=== PATIENT | male | born 1980 | race Caucasian/White ===

== ENCOUNTER 2017-10-16 18:02 | Emergency (ER) | payer OTHER ==
[2017-10-16 18:06] VITALS: BP 133/92
[2017-10-16] MEDS ORDERED: ONDANSETRON 4 MG ODT TABDP SL ONE (18:15)
--- NOTE | 2017-10-16 18:22 | ER Report ---
History and Physical Time Seen By MD: 18:13 Hx. of Stated Complaint: PATIENT REPORTS THAT HE IS FEELING DEHYDRATED. HE REPORTS THAT HE DRANK TOO MUCH LAST NIGHT AND WENT CLIMBING TODAY HPI/ROS CHIEF COMPLAINT: Panic attack HISTORY OF PRESENT ILLNESS: This is a 36-year-old male who presents to the emergency department for vomiting and a panic attack. Patient states he had more alcohol last night than he typically does, without rockclimbing today had several episodes of vomiting. Became anxious, began to have some carpal pedal spasms and decided come to the ER for further evaluation. Patient arrives anxious however once he's on the gurney and relaxing the carpal pedal spasms beginning to subside. Patient has no other complaints no fevers or chills. No headaches. No leg pain. No chest pain. REVIEW OF SYSTEMS: Respiratory: No cough, no dyspnea. Cardiovascular: No chest pain, no palpitations. Gastrointestinal: As above. Musculoskeletal: As above. Allergies: Coded Allergies: Amoxicillin (Verified Allergy, Mild, 06/14/08) Bacitracin (Verified Allergy, Mild, 06/14/08) Gramicidin D (Verified Allergy, Mild, 06/14/08) Neomycin (Verified Allergy, Mild, 06/14/08) Polymyxin B (Verified Allergy, Mild, 06/14/08) Sulfa (Sulfonamides) (Verified Allergy, Mild, 06/14/08) Home Meds Active Scripts Ondansetron (ZOFRAN ODT) 4 Mg Tab.rapdis, 4 MG PO Q6H Y for NAUSEA/VOMITING, # 20 TAB.BRITTANY 0 Refills Prov:UZIEL TRINH SECTION WEAVER- 10/16/17 Past Medical/Surgical History No significant past surgical or medical history. Reviewed Nurses Notes: Yes Hx Alcohol Use: Yes Constitutional Vital Sign - Last 24 Hours 10/16/17 18:06 Temp 97.4 Pulse 97 Resp 28 B/P (MAP) 133/92 Pulse Ox 100 O2 Delivery Room Air Physical Exam General Appearance: The patient is alert, has no immediate need for airway protection and no current signs of toxicity. Eyes: Pupils equal and round no injection. Respiratory: Chest is non tender, lungs are clear to auscultation. Cardiac: regular rate and rhythm. Gastrointestinal: Abdomen is soft and non tender, no masses, hyperactive bowel sounds over the Epigastrium. Musculoskeletal: Neck: Neck is supple and non tender. Extremities have full range of motion and are non tender. Skin: No rashes or lesions. DIFFERENTIAL DIAGNOSIS: After history and physical exam differential diagnosis was considered for anxiety, alcoholic gastritis, carpal pedal spasms and dehydration. Medical Decision Making ED Course/Re-evaluation ED Course The patient was admitted to room. A history of physical were obtained. Differential diagnoses were considered. Once the patient was back in the room the carpopedal spasms did subside, patient's was less anxious. Patient does have a history of panic attacks. Patient was given a 4 mg ODT Zofran, some Pedialyte and a famotidine. After about 30-45 minutes of observation, the patient's feeling much better, states he is ready to go home. I did recommend a very bland diet for at least 12 hours and slowly progress into a regular diet. I sent the patient home with a prescription for Zofran. The patient had no other questions or concerns at this time and was discharged home. Decision to Disposition Date: Oct 16, 2017 Decision to Disposition Time: 18:59 Depart Departure Latest Vital Signs Vital Signs Date Time Temp Pulse Resp B/P (MAP) Pulse Ox O2 Delivery O2 Flow Rate FiO2 10/16/17 18:06 97.4 97 28 133/92 100 Room Air Impression: Primary Impression: Gastritis Additional Impression: Panic attack Condition: Improved Disposition: HOME OR SELF-CARE New Scripts Ondansetron (ZOFRAN ODT) 4 Mg Tab.rapdis 4 MG PO Q6H Y for NAUSEA/VOMITING, #20 TAB.BRITTANY 0 Refills Prov: UZIEL TRINH-BC 10/16/17 Patient Instructions: Gastritis (ED), Panic Attack (ED) Additional Instructions: Be sure to drink plenty of fluid, but very slowly. Take the Zofran as needed for nausea and vomiting. If you continue to have some stomach pain, try famotidine once a day. Try a bland meal for the next 12 hours then advance slowly. Return to the ED for any other concerns or worsening symptoms. Problem Qualifiers Primary Impression: Gastritis Gastritis type: unspecified gastritis Chronicity: acute Gastritis bleeding : without bleeding Qualified Codes: K29.00 - Acute gastritis without bleeding UZIEL TRINH SECTION WEAVER-BC Oct 16, 2017 18:22
[2017-10-16] MEDS ORDERED: FAMOTIDINE 20 MG TAB PO ONE (18:30)
[2017-10-16] MEDS ORDERED: ONDA4TAB PO (18:45)
[2017-10-16] MEDS ORDERED: ONDANSETRON 4 MG ODT TH SL ONE (19:00)
== END 2017-10-16 19:07 | disposition home or self-care (01) ==
LOC: ER 18:17
DX: F41.0 Panic disorder [episodic paroxysmal anxiety] (principal); R11.10 Vomiting, unspecified
CPT/HCPCS: 99283; S0119